=== PATIENT | male | born 2000 | race Caucasian/White ===

== ENCOUNTER 2024-07-22 09:57 | Emergency (ER) | payer OTHER, SELFPAY ==
[2024-07-22 10:00] VITALS: BP 110/74; PULSE 114; RESP 20; TEMP 37.3; O2SAT 94; BMI 23.7
--- NOTE | 2024-07-22 10:19 | CRLHL7_ITS ---
For Patients: As a result of the Century Cures Act, medical imaging exams and procedure reports are released immediately into your electronic medical record. You may view this report before your referring provider. If you have questions, please contact your health care provider. INDICATION: Cough and left rib pain. Morning they heard a pop in the chest when coughing. COMPARISON: None. TECHNIQUE: PA and lateral 2 view chest. FINDINGS: Lung volumes are good. No focal or diffuse opacities. No pulmonary edema. No pleural effusion. No pneumothorax. No pneumomediastinum. Normal cardiomediastinal silhouette. Bones: Pectus excavatum. No acute appearing osseous findings or rib fracture seen.. IMPRESSION: Pectus excavatum. No acute findings on chest radiographs. Dictated by Leena Bob MD @ 07/22/2024 10:56:21 AM (Electronically Signed)
[2024-07-22] MEDS: ACETAMINOPHEN 500 MG TABLET 1000 MG PO (10:31)
--- NOTE | 2024-07-22 10:31 | ED_ITS ---
HPI - General Adult General Date Seen: 07/22/24 Chief complaint: Rib Pain Stated complaint: pneumonia/rib pain Time Seen by Provider: 07/22/24 10:09 History of Present Illness HPI narrative: Patient is a 24-year-old young man who is here with his mom. Mother provides most of the history. About 10 days ago he was seen at an urgent care in [place], at that time was having fever and cough. They are not sure whether testing for COVID or influenza was done, he thinks it was but he does not know what the results were. He was diagnosed with a pneumonia, says he had the x-ray at that time. He was started on an antibiotic which he does not remember the name of. He says he finished that 1 a couple of days ago. He thinks it started with AD but when I suggested doxycycline he said no that had been prescribed more recently but he has not yet started it. The other 1 was a different antibiotic. Fever has improved. He continues to have coughing. He felt midway through his course of antibiotics like he was doing a little bit better but feels like he is now worse. Today he was coughing and developed pain in the left side of his chest which is sharp, worsened with deep breath or movement. He feels a little bit of shortness of breath as well although it seems mostly due to pain with breathing. He denies GI symptoms, lower extremity swelling or pain. Has a history of pectus excavatum which was surgically repaired when he was young. Denies other surgeries or other medical history. Denies smoking, vaping, drug or alcohol use. Related Data Home Medications ?Medication ?Instructions ?Recorded ?Confirmed doxycycline hyclate 100 mg capsule mg 07/22/24 Previous Rx's ?Medication ?Instructions ?Recorded oxycodone 5 mg tablet 5 mg PO Q6H PRN pain #14 tabs 07/22/24 prednisone 20 mg tablet 20 mg PO BID #10 tabs 07/22/24 Allergies Allergy/AdvReac Type Severity Reaction Status Date / Time No Known Drug Allergies Allergy Verified 07/22/24 12:59 Review of Systems Status of ROS: Reports: 10 or more systems reviewed and unremarkable except as noted in History and below Exam Narrative: Exam Narrative: Vital signs reviewed In general, alert, nontoxic young man. He is clutching the left side of his chest. Prefers not to speak because of pain. Head: Normocephalic, atraumatic. Eyes: Sclera clear. Pupils equal and reactive. ENT: Mucous membranes moist. Neck: Supple without adenopathy. Heart: Tachycardic and regular. No murmur, no rub. Lungs: He has bilateral crackles, some scattered wheezes on the left. Shallow breaths. No increased work of breathing. Abdomen: Soft, nontender to palpation. Extremities: Well perfused, pulses intact. No significant edema. Neurologic: Alert, conversant. Speech fluent, face symmetric. Moves all extremities equally. Skin: Warm, dry well perfused. Affect: Anxious. Const: Vital Signs, click to edit/add: Vital Signs - 24 hr 07/22/24 10:00 Temperature 99.2 F Pulse Rate [Right Pulse Oximeter] 114 H Respiratory Rate 20 Blood Pressure [Ri ght Upper Arm] 110/74 Pulse Oximetry 94 Oxygen Delivery Me thod Room Air Documenting provider has reviewed patient's vital signs: yes Course Course ED Course: Following initial evaluation, I did look with the bedside ultrasound at his heart. I do not see any evidence of effusion, global function looks normal. Images are somewhat affected by his history of pectus excavatum. I have ordered an EKG, repeat chest x-ray and some labs. Symptoms seem most likely related to chest wall pain either from a muscular injury or rib fracture, but other diagnostic considerations would be pleurisy related to ongoing pneumonia, pulmonary embolism, myocarditis, congestive heart failure, pleural effusion, pulmonary abscess among others. Patient had an EKG which showed sinus tachycardia, right bundle-branch block. Previous EKG is not available for comparison. Chest x-ray by my review did not show pneumothorax or obvious rib fracture, I question some infiltrate in the right base, radiology read chest x-ray is negative. White count was mildly elevated at 12, D-dimer was mildly elevated at 0.77. Other labs are really unremarkable. Point care troponin was 0. Because of the elevated D-dimer I did recommend CT scan of the chest. By my review this did not show evidence of pulmonary embolism, he does have a minimally displaced rib fracture on the left which I am sure is the source of his pain. I do not find evidence for anything else concerning. He does have changes consistent with bronchitis and multifocal pneumonia on his chest CT, difficult to assess whether this is persistent, improving, or worsening. Clinically he feels that he has been improving. He did not fill the prescription yet for the 2nd antibiotic that was prescribed and I think urged him to do that. For pain from his rib fracture, we discussed ice, ibuprofen, Tylenol as baseline measures. I prescribed oxycodone, 14 tablets to use if needed for uncontrolled pain. I also prescribed a steroid given that he does have some wheezing and bronchial thickening on CT scan. Reviewed that if he is feeling worse he should come back to the ER. Otherwise, recheck with primary care if not significantly improved in a week. Vital Signs Vital signs: Initial Vital Signs Temperature 99.2 F 07/22/24 10:00 Temperature Source Temporal Artery Scan 07/22/24 10:00 Pulse Rate 114 H 07/22/24 10:00 Pulse Rhythm Regular 07/22/24 10:00 Pulse Strength 3+ Normal 07/22/24 10:00 Respiratory Rate 20 07/22/24 10:00 Blood Pressure 110/74 07/22/24 10:00 Blood Pressure Mean 86 07/22/24 10:00 Blood Pressure Position Sitting 07/22/24 10:00 Pulse Oximetry 94 07/22/24 10:00 Oxygen Delivery Method Room Air 07/22/24 10:00 Vital Signs Temperature 99.2 F 07/22/24 10:00 Pulse Rate 114 H 07/22/24 10:00 Respiratory Rate 20 07/22/24 10:00 Blood Pressure 110/74 07/22/24 10:00 Pulse Oximetry 94 07/22/24 10:00 Oxygen Delivery Method Room Air 07/22/24 10:00 Temperature 99.2 F 07/22/24 10:00 Pulse Rate 114 H 07/22/24 10:00 Respiratory Rate 20 07/22/24 10:00 Blood Pressure 110/74 07/22/24 10:00 Pulse Oximetry 94 07/22/24 10:00 Oxygen Delivery Method Room Air 07/22/24 10:00 Medications Administered Medications: Discontinued Medications Generic Name Dose Route Start Last Admin Trade Name Freq PRN Reason Stop Dose Admin Acetaminophen 1,000 mg 07/22/24 10:18 07/22/24 10:31 Acetaminophen 500 Mg Tablet PO 07/22/24 10:19 1,000 mg ONCE ONE Administration Oxycodone HCl 5 mg 07/22/24 10:18 07/22/24 10:33 Oxycodone 5 Mg Tablet PO 07/22/24 10:19 5 mg ONCE ONE Administration Medical Decision Making Lab Data Lab results reviewed: Yes I reviewed the patient's lab results Labs: Lab Results 07/22/24 07/22/24 Range/Units 10:30 10:50 WBC 11.95 H (4.50-11.00) K/uL RBC 5.93 H (4.30-5.90) m/uL Hgb 17.0 (13.5-17.5) gm/dL Hct 50.9 (37.0-53.0) % MCV 86 (80-100) fL MCH 29 (26-34) pg MCHC 33 (32-36) gm/dL RDW Coeff of Stephanie 12.8 (11.5-15.5) % Plt Count 216 (140-440) K/uL Neut % (Auto) 77.1 H (42.0-72.0) % Lymph % (Auto) 13.9 L (20-44) % [place] % (Auto) 7.1 (0.0-11.0) % Eos % (Auto) 0.7 (0.0-7.0) % Baso % (Auto) 0.3 (0.0-3.0) % Neut # (Auto) 9.20 H (1.7-7.0) K/uL Lymph # (Auto) 1.70 (0.90-2.90) K/uL [place] # (Auto) 0.80 (0.00-0.90) K/UL Eos # (Auto) 0.10 (0.00-0.50) K/uL Baso # (Auto) 0.00 (0.00-0.30) K/uL Abs Immat Gran (auto) 0.10 (0.00-0.30) K/uL Imm/Tot Granulo (auto) 0.9 % D-Dimer Quant (PE/DVT) 0.77 H (0.00-0.50) ug/ml Sodium 137 (135-149) mmol/L Potassium 4.7 (3.6-5.1) mmol/L Chloride 105 (96-114) mmol/L Carbon Dioxide 19 L (20-32) mmol/L Anion Gap 13 (7-15) mEq/L BUN 14 (5-24) mg/dL Creatinine 0.8 (0.5-1.5) mg/dL Estimated Creat Clear 168.71 Estimated GFR 126 ml/min Glucose 105 (60-115) mg/dL Lactate 1.1 (0.5-1.9) mmol/L Calcium 10.0 (8.4-10.6) mg/dL Total Bilirubin 0.9 (0.1-1.5) mg/dL Direct Bilirubin 0.4 (0.0-0.5) mg/dL AST 27 (12-35) U/L ALT 28 (4-50) U/L Alkaline Phosphatase 81 (40-150) U/L Total Protein 8.7 H (6.0-8.3) g/dL Albumin 4.7 (3.3-5.0) g/dL POC Troponin I 0.00 L (0.01-0.04) ng/ml Imaging Data CT scan - chest: Attestation: I have reviewed the pertinent imaging results. Radiologist's impression: [place] [address] Diagnostic Imaging Report Patient: Diaz Coughlin MR#: [id number] : 2000 Acct:[id number] Loc: ED Service Date: 07/22/[address]: Ordering Physician: Kaleigh Roberts M.D. Date of Service: 07/22/24 Procedure(s): XR chest 2V Accession Number(s): [id number] cc: Kaleigh Roberts M.D.; Marisa Burden M.D.~ For Patients: As a result of the Cures Act, medical imaging exams and procedure reports are released immediately into your electronic medical record. You may view this report before your referring provider. If you have questions, please contact your health care provider. INDICATION: Cough and left rib pain. Morning they heard a pop in the chest when coughing. COMPARISON: None. TECHNIQUE: PA and lateral 2 view chest. FINDINGS: Lung volumes are good. No focal or diffuse opacities. No pulmonary edema. No pleural effusion. No pneumothorax. No pneumomediastinum. Normal cardiomediastinal silhouette. Bones: Pectus excavatum. No acute appearing osseous findings or rib fracture seen.. IMPRESSION: Pectus excavatum. No acute findings on chest radiographs. Dictated by Leena Bob MD @ 07/22/2024 10:56:21 AM Discharge Plan Discharge Clinical Impression: Pneumonia, Closed fracture of rib of left side Patient Disposition: Home, Self-Care Condition: Improved Instructions: Rib Fracture (ED), Community Acquired Pneumonia (DC) Additional Instructions: I would recommend taking ibuprofen 400 mg plus Tylenol 1000 mg 3 times daily with food. Oxycodone if needed for uncontrolled pain. Ice will be helpful as well, use liberally over the next week or so. You can also try a rib belt which can be purchased at the pharmacy to help stabilize the chest wall. Please make sure to start the antibiotic that was previously prescribed for you. I have sent a prescription for prednisone as well as a think it may help with your cough. If you are worsening, have severe uncontrolled pain, high fevers, difficulty breathing etcetera return to the ER at any time. Otherwise, see your primary doctor if not improved in the next week. Prescriptions: New oxycodone 5 mg tablet 5 mg PO Q6H PRN (Reason: pain) Qty: 14 0RF prednisone 20 mg tablet 20 mg PO BID Qty: 10 0RF No Action doxycycline hyclate 100 mg capsule Follow Up/Referrals: Marisa Burden MD [Primary Care Provider] - Stand Alone Forms: [facility] Info Instructions
[2024-07-22] MEDS: OXYCODONE 5 MG TABLET PO (10:33)
--- OUTSIDE RECORDS SUMMARY | 2024-07-22 10:48 | XMS_ITS | Clinical Summary ---
Author Organization [facility] Address [address] [place] [id number] Care Team Providers Care Assistant Tennis Coach Name Role Phone Marisa Burden MD Primary Care Provi santosh Allergies No known active allergies Medications FLUoxetine (PROZAC) 20 mg oral capsule Take 20 mg by mouth once daily. Active Active Problems Problem Noted Date Diagnosed Date Depression, unspecified depression type Family History * Patient is adopted Relation Status Comments Father Alive Mother Alive Social History Tobacco Use Types Packs/Day Years Used Date Smoking Tobacco: Never Smokeless Tobacco: Never Alcohol Use Standard Drinks/Week Comments Never 0 (1 standard drink = 0.6 oz pur e alcohol) AUDIT-C Answer Date Recorded Frequency of Alcohol Consumption Never 07/20/2018 Average Number of Drinks Not on file 019 Frequency of Binge Drinking Not on file 07/03 Education Answer Date Recorded What is the highest level of school you have completed or the highest degree you have received? 12th grade 07/20/2018 Sex and Gender Information Value Date Recorded Sex Assigned at Not on file Legal Sex Male 7:28 PM REGULATORY COMPLIANCE OFFICER Gender Identity Not on file Sexual Orientation Not on file Last Filed Vital Signs Vital Sign Reading Time Taken Comments Blood Pressure 121/63 07/23/2018 7:53 AM REGULATORY COMPLIANCE OFFICER Pulse 65 07/23/2018 7:53 AM REGULATORY COMPLIANCE OFFICER Temperature 36.4 C (97.6 F) 07/23/2018 7:53 AM REGULATORY COMPLIANCE OFFICER Respiratory Rate 16 07/23/2018 7:53 AM REGULATORY COMPLIANCE OFFICER Oxygen Saturation 99% 07/23/2018 7:53 AM REGULATORY COMPLIANCE OFFICER Inhaled Oxygen Concentration - - Weight 69.7 kg (153 lb 11.2 oz) 07/20/2018 8:00 PM REGULATORY COMPLIANCE OFFICER Height 188 cm (6' 2) 07/20/2018 8:00 PM REGULATORY COMPLIANCE OFFICER Body Mass Index 19.73 07/20/2018 8:00 PM REGULATORY COMPLIANCE OFFICER Plan of Treatment Health Maintenance Due Date Last Done Comments Hepatitis C Screening 2000 Anxiety Screening (ABDIRAHMAN-2) 01/20/2000 Depression Assessment (PHQ-2) 01/20/2000 Depression Follow-Up (PHQ-9) 01/20/2000 Adult Tetanus Booster 01/28/2021 01/28/2011 COVID-19 Vaccine (2023- season) 2024 Influenza Vaccine (#1) 2024 4, 05/22/2012, 06/24/2011, Additional history exists RSV Vaccines (1 - 1-dose 75+ series) 2074 HPV Vaccine Completed 12/26/2013, 07/04, 12/28/2012 Pneumococcal <50 Aged Out No longer e ligible based on patient's age to complete this topic Insurance [employer] OPEN ACCESS/CHOICE Advance Directives For more information, please contact: [phone] * Full Code (Latest Code Status on File) Date Activated Date Inactivated Comments 07/20/2018 8:29 PM 07/23/2018 6:51 PM Question Answer Comments How was code status determined? Patient Care Teams Assistant Tennis Coach Relationship Specialty Start Date End Date Marisa Burden MD [address] [place] [address] PCP - General Pediatrics 07/20/18
--- OUTSIDE RECORDS SUMMARY | 2024-07-22 10:48 | XMS_ITS | Clinical Summary ---
Author Organization [facility] Address [place], [place] [address] Care Team Providers Care Sports Intern Name Role Phone Svitlana Vogt Primary Care Provider Allergies No known active allergies Medications methylphenidate HCl 60 mg [id number]:A ttention deficit hyperactivity disorder (ADHD), combined type Take 1 Capsule (60 mg) by mouth once daily. 30 Capsule 3 Active FLUoxetine (PROZAC) 20 mg capsuleIndication s:Depression, unspecified depression type Take 1 Capsule (20 mg) by mouth once daily. 90 Capsule 1 3 Active methylphenidate HCl 60 mg [id number]:A ttention deficit hyperactivity disorder (ADHD), combined type Take 1 Capsule (60 mg) by mouth once daily. 30 Capsule 3 Active methylphenidate HCl 60 mg [id number]:A ttention deficit hyperactivity disorder (ADHD), combined type Take 1 Capsule (60 mg) by mouth once daily. 30 Capsule 3 Active methylphenidate HCl 60 mg [id number]:A ttention deficit hyperactivity disorder (ADHD), combined type Take 1 Capsule (60 mg) by mouth once daily. 30 Capsule 3 Active ARIPiprazole (ABILIFY) 10 mg tabletIndications :Depression, unspecified depression type TAKE ONE TABLET BY MOUTH ONE TIME DAILY AT BEDTIME 30 Tablet 4 Active doxycycline hyclate 100 mg capsuleIndication s:Community acquired pneumonia, unspecified laterality Take 1 Capsule (100 mg) by mouth two times daily for 7 days. 14 Capsule 5 07/29/19 25 Active albuterol HFA (ProAir HFA) 90 mcg/actuation inhalerIndication s:Community acquired pneumonia, unspecified laterality Inhale 1-2 Puffs by mouth every 6 hours if needed for Shortness of Breath 1st choice. 1 Each 5 Active predniSONE (DELTASONE) 10 mg tabletIndications :Community acquired pneumonia, unspecified laterality Take 4 Tablets (40 mg) by mouth once daily with a meal for 3 days, THEN 3 Tablets (30 mg) once daily with a meal for 3 days, THEN 2 Tablets (20 mg) once daily with a meal for 3 days, THEN 1 Tablet (10 mg) once daily with a meal for 3 days. 30 Tablet 5 08/03/19 25 Active amoxicillin 500 mg capsuleIndication s:Pneumonia, bacterial Take 2 Capsules (1,000 mg) by mouth three times daily for 5 days. 30 Capsule 5 07/17/19 25 predniSONE (DELTASONE) 20 mg tabletIndications :Cough, unspecified type,Pneumonia, bacterial Take 1 Tablet (20 mg) by mouth two times daily with meals for 5 days. 10 Tablet 5 07/17/19 25 Active Problems Problem Noted Date Diagnosed Date Controlled substance agreement signed 04/09/2021 Overview (04/05/2022): Signed 02-08-2022. Valentina Sutherland MD-[facility] Attention deficit hyperactiv ity disorder (ADHD), combined type 04/16/2019 Suicidal ideation 11/20/2018 Ingestion of substance 10/26/2018 Depression 07/24/2018 Adjustment disorder with mixed anxiety and depre ssed mood 07/13/2018 Sesamoiditis 06/21/2010 Pigmented skin lesion 12/29/2008 Attention deficit disorder with hyperactivity(31 4.01) 11/08/2006 Resolved Problems Problem Noted Date Diagnosed Date Resolved Date Pectus excavatum 06/21/2010 02/07/2014 Encounters Date Type Department Care Team Description 07/22/2024 8:10 AM QUALITY OFFICER Office Visit [facility] [address] [place] [address] Arlette Dunaway PA Pneumonia 07/22/2024 Travel 07/12/2024 5:25 PM QUALITY OFFICER Ancillary Procedure [facility] [address] [place] [id number] 07/12/2024 3:00 PM QUALITY OFFICER Office Visit [facility] [address] [place] [address] Radhika Deal, JESUS Cough (Cough x 1 week. Has become productive over last 2 days. ); Fever (Fevers up to 101-103 on 07/09/24) 07/12/2024 Travel from Last 3 Months Immunizations Name Administration Dates Next Due AMB Influenza, IIV3 (Age >=3 years) Preserve Free (Flu Clinic Only) 05/22/2012 DTaP 01/07/2004, 1,07/05/2000,05/24,04/25/2000 HIB-HepB (Comvax) 04/25/2000 Hepatitis A (Peds) 06/23/2008,01/02/2008 Hepatitis B (Peds) 02/02/2001,07/05/2000 Human Papilloma Virus Vaccine 12/26/2013, 014,12/28/2012 Inactivated Polio Vaccine 01/07/2004,08/2000,05/24/2000,04/25 Influenza A (H1N1), Inactiva paco (Age >=3 Years) 06/12/2009 Influenza Virus, Unspecified 06/05/2016 Influenza, IIV3 (Age >=3 years) 07/23/2013,06/24,06/21/2010 Influenza, IIV4 07/04/2014 Influenza, Whole Virus 09/06/2017 Influenza,LAIV4 Live Intrana jigna (Flumist) 06/08/2009,06/23/2008 MENINGOCOCCAL VACCINE 2 VIAL [id number] (MENVEO) 09/04/2015,01/28/2011 MMR 01/07/2004,05/24/2000 Tdap 08/25/2020,01/28/2011 Family History * Patient is adopted Relation Name Status Comments Brother Kieran Alive Father Fred Alive Mother Bebe Alive Sister 1 Karin Alive Sister 2 Debbie Alive Social History Tobacco Use Types Packs/Day Years Used Date Smoking Tobacco: Never Smokeless Tobacco: Never Tobacco Cessation:Counseling Given: Yes Alcohol Use Standard Drinks/Week Comments No 0 (1 standard drink = 0.6 oz pur e alcohol) PHQ-2 Answer Date Recorded PHQ-2 TOTAL SCORE 0 01/11/2023 Social Connections Answer Date Recorded Do you often feel lonely or isolated from those around you? 0 07/22/2024 Alcohol Use Answer Date Recorded How often do you have a drink containing alcohol ? 0 11/12/2021 Average Number of Drinks Not on file 022 Frequency of Binge Drinking Not on file 10/31 Financial Resource Strain Answer Date R ecorded Difficulty of Paying Living Expenses 3 07/22/2024 Difficulty of Paying Living Expenses Not on file 07/22/2024 Food Insecurity Answer Date Recorded Do you worry your food will run out before you are able to buy more? 1 07/22/2024 Transportation Needs Answer Date Record ed Does lack of transportation keep you from medica l appointments? 1 07/22/2024 Does lack of transportation keep you from work, meetings or getting things that you need? 1 07/22/2024 Housing Stability Answer Date Recorded What is your housing situation today? 1 07/22/2024 Utilities Answer Date Recorded Do you have trouble paying f or utilities (for example, heat, electricity, water, phone)? 1 07/22/2024 Sex and Gender Information Value Date Recorded Sex Assigned at Male 04/23/2020 7:36 AM CDT Legal Sex Male 5:41 AM QUALITY OFFICER Gender Identity Male 04/23/2020 7:36 AM CDT Sexual Orientation Straight 04/23/2020 7: 36 AM CDT Obstetrics History Last Filed Vital Signs Vital Sign Reading Time Taken Comments Blood Pressure 109/78 07/22/2024 8:11 AM QUALITY OFFICER Pulse 117 07/22/2024 8:11 AM QUALITY OFFICER Temperature 36.8 C (98.2 F) 07/12/2024 4:37 PM QUALITY OFFICER Respiratory Rate 18 07/12/2024 4:37 PM QUALITY OFFICER Oxygen Saturation 92% 07/22/2024 8:11 AM QUALITY OFFICER Inhaled Oxygen Concentration - - Weight 90.4 kg (199 lb 4.8 oz) 07/12/2024 4:37 P M QUALITY OFFICER Height 190.5 cm (6' 3) 06/23/2022 8:59 AM QUALITY OFFICER Body Mass Index 24.91 06/23/2022 8:59 AM QUALITY OFFICER Plan of Treatment Upcoming Encounters Date Type Department Care Team (Late st Contact Info) Description 07/26/2024 7:50 AM QUALITY OFFICER Office Visit [facility] [address] [place] [address] Svitlana Vogt PA [address] [place] [address] Health Maintenance Due Date Last Done Comments HIV for age 15-65 2014 Hepatitis C screening for age 18-79 2017 BMI (ht and wt on same day) for age 18+ 06/23/2023 06/23/2022, 01/28/2021, 04/23/2020, Additional history exists Depression screening for age 12+ 01/12/2024 01/11/2023, 12/13/2022, 06/23/2022, Additional history exists COVID-19 vaccine series ( season) 2024 02/09/2021, 2021 Influenza for age 9-49 03/03/2024 8, 06/05/2016, 07/04/2014, Additional history exists Tetanus booster 08/25/2030 08/25/2020, 01/28/2011 HPV series for age 9-26 Completed 12/27/19 14, 07/23/2013, 12/28/2012 Tdap Completed 08/25/2020, 01/28/2011 Pneumococcal series for age 6-49 Aged Out No longer eligible based on patient's age to complete this topic Procedures Procedure Name Priority Date/Time Associated Diagnosis Comments XR CHEST 2 VIEWS PA AND LATERAL STAT 07/12/2024 5:32 PM QUALITY OFFICER Cough, unspecified type from Last 3 Months Results * XR CHEST 2 VIEWS PA AND LATERAL (07/12/2024 5:32 PM QUALITY OFFICER) Anatomical Region Laterality Modality CHEST, THORAX, Lung, HEART Compu paco Radiography 07/12/2024 5:46 PM QUALITY OFFICER Impressions 07/12/2024 5:46 PM QUALITY OFFICER 1. Focal infiltrate or pneumonitis of the right middle lobe Dictated by Jeffery Saucedo MD @ 07/12/2024 5:46:04 PM (Electronically Signed) Narrative 07/12/2024 5:46 PM QUALITY OFFICER For Patients: As a result of the Cures Act, medical imaging exams and procedure reports are released immediately into your electronic medical record. You may view this report before your referring provider. If you have questions, please contact your health care provider. INDICATION: Cough. COMPARISON: None. TECHNIQUE: Chest 2 views. FINDINGS: Focal opacity within the medial right lower lung corresponds with right middle lobe infiltrate or pneumonitis. Left lung is clear. No pleural effusions. No normal thorax. Normal cardiomediastinal silhouette. No osseous abnormalities. Procedure Note Jeffery Saucedo MD, PhD - 07/12/2024 For Patients: As a result of the Cures Act, medical imagingexams and procedure reports are released immediately into your electronicmedical record. You may view this report before your referring provider.If you have questions, please contact your health care provider. INDICATION: Cough. COMPARISON: None. TECHNIQUE: Chest 2 views. FINDINGS: Focal opacity within the medial right lower lung corresponds with rightmiddle lobe infiltrate or pneumonitis. Left lung is clear. No pleural effusions. No normal thorax. Normal cardiomediastinal silhouette. No osseous abnormalities. IMPRESSION: 1. Focal infiltrate or pneumonitis of the right middle lobe Dictated by Jeffery Saucedo MD @ 07/12/2024 5:46:04 PM (Electronically Signed) Radhika Deal PERFORMANCE IMPROVEMENT MANAGER GENERAL IMAGING Final Resu lt from Last 3 Months Insurance [facility] [employer] Advance Directives * Full Code (Latest Code Status on File) Date Activated Date Inactivated Comments 11/19/2018 9:31 PM 11/23/2018 2:18 PM Question Answer Comments Code Status Discussion: Not Discussed Care Teams Sports Intern Relationship Specialty Start Date End Date Svitlana Vogt PA [address] [place] [address] PCP - General Physician Substation Operator Apprentice 10/19/20
--- OUTSIDE RECORDS SUMMARY | 2024-07-22 10:49 | XMS_ITS | Referral Summary ---
Author Organization [facility] Address [address] [place] [id number] Care Team Providers Care Tank Inspector Name Role Phone Marisa Burden MD Primary Care Provi santosh Allergies No known active allergies Medications FLUoxetine (PROZAC) 20 mg oral capsule Take 20 mg by mouth once daily. Active Active Problems Problem Noted Date Diagnosed Date Depression, unspecified depression type Social History Tobacco Use Types Packs/Day Years [...] on file Legal Sex Male 7:28 PM ROENTGENOLOGY TEACHER Gender Identity Not on file Sexual Orientation Not on file Last Filed Vital Signs Vital Sign Reading Time Taken Comments Blood Pressure 121/63 07/23/2018 7:53 AM ROENTGENOLOGY TEACHER Pulse 65 07/23/2018 7:53 AM ROENTGENOLOGY TEACHER Temperature 36.4 C (97.6 F) 07/23/2018 7:53 AM ROENTGENOLOGY TEACHER Respiratory Rate 16 07/23/2018 7:53 AM ROENTGENOLOGY TEACHER Oxygen Saturation 99% 07/23/2018 7:53 AM ROENTGENOLOGY TEACHER Inhaled Oxygen Concentration - - Weight 69.7 kg (153 lb 11.2 oz) 07/20/2018 8:00 PM ROENTGENOLOGY TEACHER Height 188 cm (6' 2) 07/20/2018 8:00 PM ROENTGENOLOGY TEACHER Body Mass Index 19.73 07/20/2018 8:00 PM ROENTGENOLOGY TEACHER Plan of Treatment Not on file Insurance [employer] OPEN ACCESS/[employer] [place] [id number] Advance Directives For more information, please contact: [phone] * Full Code (Latest Code Status on File) Date Activated Date Inactivated Comments 07/20/2018 8:29 PM 07/23/2018 6:51 PM Question Answer Comments How was code status determined? Patient Care Teams Tank Inspector Relationship Specialty Start Date End Date Marisa Burden MD [address] [facility] [place] [address] PCP - General Pediatrics 07/20/18
[2024-07-22 10:51] LABS: Lactate Sepsis w/Reflex* 1.1 mmol/L (0.5-1.9)
[2024-07-22 11:19] LABS: D Dimer Quantitative* 0.77 ug/ml (0.00-0.50)
[2024-07-22 11:28] LABS: Basophils Percent Auto 0.3 % (0.0-3.0); Eosinophils Percent Auto 0.7 % (0.0-7.0); Hematocrit 50.9 % (37.0-53.0); Immature Granulocytes Pct Auto 0.9 %; Lymphocytes Percent Auto 13.9 % (20-44); Mean Corpuscular HGB Conc 33 gm/dL (32-36); Mean Corpuscular Hemoglobin 29 pg (26-34); Mean Corpuscular Volume 86 fL (80-100); Monocytes Percent Auto 7.1 % (0.0-11.0); Neutrophils Percent Auto 77.1 % (42.0-72.0); Platelet Count* 216 K/uL (140-440); RDW Coefficient of Variation % 12.8 % (11.5-15.5); Red Blood Count 5.93 m/uL (4.30-5.90); White Blood Count* 11.95 K/uL (4.50-11.00)
--- NOTE | 2024-07-22 11:33 | CRLHL7_ITS ---
For Patients: As a result of the Century Cures Act, medical imaging exams and procedure reports are released immediately into your electronic medical record. You may view this report before your referring provider. If you have questions, please contact your health care provider. Indication: Chest pain, elevated D-dimer, recent Technique: Volumetric multidetector CT images of the chest were obtained after the administration of IV contrast. 95 cc Isovue 370 low osmolar intravenous contrast Comparison: None available. Findings: The thoracic inlet and thyroid gland are unremarkable. The thoracic aorta is nonaneurysmal. There is no central filling defect to suggest pulmonary embolism. There is moderate enlarged mediastinal and hilar lymph nodes the largest in the inferior right hilum measuring up to 2.6 centimeters. There is marked central bronchial thickening with mucoid impaction of sfbmn-ecjvhfk-vysr-left lower lobe bronchi. There are developing centrilobular nodular airspace opacities within the right greater than left lower lobes and inferior upper lobes commensurate with developing multifocal infiltrates. Demonstration of pectus deformity. There is demonstration of a nondisplaced fracture of the left 5th rib. The remaining thoracic osseous structures are otherwise grossly intact. The partially visualized upper abdominal viscera are within normal limits. The thoracic vertebral body heights remain intact alignment without significant degenerative change or acute osseous abnormality. Impression: 1. Demonstration of marked central bronchial thickening with mucoid impaction of the jslet-rttyjzh-gxku-left lower lobe bronchi with developing centrilobular airspace opacities in the znfmv-qadpszf-krcq-left lower and inferior upper lobes commensurate with developing multifocal infiltrates. There are moderately enlarged right greater than left hilar and mediastinal lymph nodes. 2. Nondisplaced fracture of the left 5th rib. 3. Pectus excavatum deformity of the chest wall. 4. No evidence of pulmonary embolus. Please note that all CT scans at this facility use dose modulation, iterative reconstruction, and/or weight-based dosing when appropriate to reduce radiation dose to as low as reasonably achievable. Dictated by Jewel Jeffery MD @ 07/22/2024 1:07:29 PM (Electronically Signed)
[2024-07-22 11:35] LABS: Slide Review Reflex No
[2024-07-22 11:55] LABS: Albumin* 4.7 g/dL (3.3-5.0); Chloride* 105 mmol/L (96-114); Sodium* 137 mmol/L (135-149)
[2024-07-22 11:56] LABS: Potassium* 4.7 mmol/L (3.6-5.1)
[2024-07-22 11:58] LABS: Alanine Aminotransferase* 28 U/L (4-50); Alkaline Phosphatase* 81 U/L (40-150); Anion Gap 13 mEq/L (7-15); Aspartate Amino Transferase* 27 U/L (12-35); Bilirubin Direct* 0.4 mg/dL (0.0-0.5); Bilirubin Total* 0.9 mg/dL (0.1-1.5); Blood Urea Nitrogen* 14 mg/dL (5-24); Carbon Dioxide* 19 mmol/L (20-32); Creatinine* 0.8 mg/dL (0.5-1.5); Est. Creatinine Clearance* 168.71; Estimated Glomerular Filt Rate 126 ml/min; Glucose* 105 mg/dL (60-115); Total Protein* 8.7 g/dL (6.0-8.3)
== END 2024-07-22 13:36 | disposition home or self-care (01) ==
PROVIDERS: Emergency Provider Emergency Medicine; PCP Pediatrics
DX: J18.9 Pneumonia, unspecified organism (principal); S22.32XA Fracture of one rib, left side, initial encounter for closed fracture
CPT/HCPCS: 36415; 71046; 71275; 80048; 80076; 83605; 84484; 85025; 85379; 93005; 93308; 99284; 99285; A9270; Q9967